=== PATIENT | male | born 1990 | race Caucasian/White ===

== ENCOUNTER 2019-09-03 08:12 | Emergency (ER) | payer OTHER ==
[~2019-09-03] VITALS: Ht 177.8 cm; Wt 82.6 kg
[2019-09-03 08:20] VITALS: BP 112/81; Ht 177.8 cm; Wt 82.6 kg
== END 2019-09-03 09:16 | disposition home or self-care (01) ==
LOC: ED 08:12
DX: B35.3 Tinea pedis (principal); L03.032 Cellulitis of left toe; B35.1 Tinea unguium

== ENCOUNTER 2020-03-24 15:42 | Emergency (ER) | payer MEDICAID ==
[~2020-03-24] VITALS: Ht 177.8 cm; Wt 78.5 kg
[2020-03-24 16:00] VITALS: Ht 177.8 cm; Wt 78.5 kg
[2020-03-24 18:36] VITALS: BP 106/61
[2020-03-24 18:59] LABS: microscopic required? NO
[2020-03-24 19:04] LABS: UA SPECIFIC GRAVITY <=1.005 (1.005-1.035); urine erythrocyte NEGATIVE (NEGATIVE)
== END 2020-03-24 18:36 | disposition home or self-care (01) ==
LOC: ED 15:42
PROVIDERS: Emergency Medicine
DX: N50.811 Right testicular pain (principal)

== ENCOUNTER 2020-03-28 13:58 | Emergency (ER) | payer MEDICAID ==
[~2020-03-28] VITALS: Ht 180.3 cm; Wt 77.6 kg
[2020-03-28 14:07] VITALS: Ht 180.3 cm; Wt 77.6 kg
[2020-03-28 14:42] LABS: RED CELL DISTRIBUTION WIDTH 13.6 % (11.5-14.5)
[2020-03-28 14:53] LABS: CARBON DIOXIDE 27.9 mmol/L (21-32); CHLORIDE SERUM 101 mmol/L (98-107); CREATININE SERUM 1.2 mg/dL (0.7-1.3); GFR1 > 60 mL/min; GLUCOSE SERUM 98 mg/dL (74-106); POTASSIUM SERUM 3.9 mmol/L (3.5-5.1); SODIUM SERUM 135 mmol/L (136-145)
[2020-03-28 14:58] LABS: ALBUMIN 3.5 g/dL (3.4-5.0); ALKALINE PHOSPHATASE 75 U/L (46-116); ALT/SGPT 26 U/L (16-63); AMYLASE 33 U/L (25-115); AST/SGOT 14 U/L (15-37); BILIRUBIN TOTAL 1.5 mg/dL (0.20-1.00); LIPASE 81 IU/L (73-393); TOTAL PROTEIN, SERUM 7.6 g/dL (6.4-8.2)
[2020-03-28 15:14] LABS: PLATELET COUNT 412 x10^3mcL (130-400)
[2020-03-28 15:31] LABS: BAND NEUTROPHIL 0 % (0-10); BASOPHIL 0 % (0-2); MONOCYTE 7 % (0-7); SEGMENTED NEUTROPHILS 84 % (37-75); rbc morphology (normal/abnorm) ABNORMAL (NORMAL)
[2020-03-28 16:47] VITALS: BP 116/64
== END 2020-03-28 16:35 | disposition home or self-care (01) ==
LOC: ED 13:58
PROVIDERS: Emergency Medicine
DX: N45.1 Epididymitis (principal)
CPT/HCPCS: 87491; 87591; J0696; J2270; J2405; Q0092